=== PATIENT | male | born 1985 | race African-American/Black ===

== ENCOUNTER → 2018-05-31 | Outpatient (CLI) | payer BC ==
[2014-04-05 13:09] VITALS: BP 124/85
--- NOTE | 2018-05-31 15:06 | KCIC ---
Left lower extremity venous doppler ultrasound History: Left lower extremity swelling Comparison: None Findings: Multiple grayscale, color, and duplex spectral analysis sonographic images were acquired of the left lower extremity veins to evaluate for the presence of DVT. There is normal phasicity. Normal compression, color-flow, and augmentation is demonstrated from the left common femoral to the popliteal veins. There is normal color flow of the proximal greater saphenous and profunda femoris veins. There is normal color flow of segments of the calf veins. There is a possible node of the left groin about 0.7 x 0.5 x 0.6 cm, no internal vascularity color Doppler imaging. Reportedly at the site of pain of the medial mid left calf region, there is underlying patent varicosity. Impression: 1. There is no evidence of deep venous thrombosis from the left common femoral to popliteal veins. Electronically signed by: Nikolai Stovall MD (05/31/2018 3:02 PM) [id number]
== END | disposition home or self-care (01) ==
LOC: KCIC US 13:04
DX: M79.662 Pain in left lower leg (principal); M79.89 Other specified soft tissue disorders
CPT/HCPCS: 93971

== ENCOUNTER 2020-04-30 21:32 | Emergency (ER) | payer BC, OTHER ==
[~2020-04-30] VITALS: Ht 182.9 cm; Wt 90.0 kg
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
[2020-04-30 22:13] LABS: BASO # 0.1 x10^3/uL (0.0-0.2); BASO % 1 % (0-3); EOS # 0.1 x10^3/uL (0.0-0.7); EOS % 2 % (0-3); HEMATOCRIT 44.3 % (39.0-53.0); LYMPH # 2.4 x10^3/uL (1.0-4.8); LYMPH % 31 % (24-48); MEAN CORPUSCULAR HEMOGLOBIN 20 pg (25-35); MEAN CORPUSCULAR HGB CONC 32 g/dL (31-37); MEAN CORPUSCULAR VOLUME 65 fL (79-100); MONO # 0.5 x10^3/uL (0.0-1.1); MONO % 7 % (0-9); NEUT # 4.7 x10^3/uL (1.8-7.7); NEUT % 60 % (31-73); PLATELET COUNT 346 x10^3/uL (140-400); RED BLOOD COUNT 6.84 x10^6/uL (4.30-5.70); RED CELL DISTRIBUTION WIDTH 15.4 % (11.5-14.5); WHITE BLOOD COUNT 7.8 x10^3/uL (4.0-11.0)
[2020-04-30 22:23] LABS: PROTHROMBIN TIME PATIENT 11.8 SEC (11.7-14.0)
[2020-04-30 22:24] LABS: CALCIUM 8.4 mg/dL (8.5-10.1); CREATININE 1.7 mg/dL (0.7-1.3); GFR 55.8; POTASSIUM 3.5 mmol/L (3.5-5.1)
[2020-04-30 22:31] LABS: ALBUMIN 4.1 g/dL (3.4-5.0); ALBUMIN/GLOBULIN RATIO 1.1 (1.0-1.7); TOTAL BILIRUBIN 0.3 mg/dL (0.2-1.0); TOTAL PROTEIN 7.9 g/dL (6.4-8.2)
[2020-04-30 22:32] LABS: PLT ESTIMATE ADEQUATE (ADEQUATE)
[2020-04-30 22:33] LABS: HYPOCHROMIA MARKED; MICROCYTOSIS MARKED
[2020-04-30 22:34] LABS: OVALOCYTES OCC; TARGET CELLS OCC
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
[2020-04-30] MEDS ORDERED: IV RINGERS,LACTATED 1000ML 1,000 ML IV ONE (23:44)
[2020-04-30] MEDS: IV RINGERS,LACTATED 1000ML 1,000 ML IV ONE (23:53)
[2020-05-01 00:25] VITALS: BP 114/70
--- NOTE | 2020-05-01 13:33 | EKG ---
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
== END 2020-05-01 01:08 | disposition home or self-care (01) ==
LOC: ER 21:32 → EEVIPCON 21:32 → ER 05-01 01:08
DX: S00.12XA Contusion of left eyelid and periocular area, initial encounter (principal); F10.229 Alcohol dependence with intoxication, unspecified; M54.2 Cervicalgia; F17.200 Nicotine dependence, unspecified, uncomplicated; V98.8XXA Other specified transport accidents, initial encounter; Y93.89 Activity, other specified; Y92.413 State road as the place of occurrence of the external cause; Y99.8 Other external cause status
CPT/HCPCS: 36415; 70450; 71045; 72125; 72170; 80053; 85025; 85610; 85730; 93005; 96360; 99285; G0480; J7120